=== PATIENT | female | born 1960 | race Hispanic/Latino ===

== ENCOUNTER 2016-11-20 13:43 | Emergency (ER) | payer OTHER ==
[2016-11-20 13:43] VITALS: BMI 19.5
[2016-11-20 13:54] VITALS: BP 107/70; PULSE 93; RESP 18; TEMP 99.8; O2SAT 95
--- NOTE | 2016-11-20 14:11 | ED PDOC ---
Upper Extremity Pain/Injury Time Seen by Provider: 11/20/16 13:43 Chief Complaint (Nursing): Upper Extremity Problem/Injury Chief Complaint (Provider): Right arm pain History Per: Patient History/Exam Limitations: no limitations Onset/Duration Of Symptoms: Days (x5) Current Symptoms Are (Timing): Still Present Additional Complaint(s): Maria Esther Fuller is a 56 year old female who presents to the emergency department for an evaluation of right arm pain after she fell and hit her right arm on door on 11/16/16. She was initially evaluated at [facility] where she was diagnosed with an arm fracture and placed in a sling. Patient came to [facility] because she could not follow up with orthopedist who would be able to take her insurance. Denies any further medical complaints. PMD: none provided Past Medical History Reviewed: Historical Data, Nursing Documentation, Vital Signs Vital Signs: Last Vital Signs Temp 99.8 F H 11/20/16 13:49 Pulse 93 H 11/20/16 13:49 Resp 18 11/20/16 13:49 BP 107/70 11/20/16 13:49 Pulse Ox 95 11/20/16 13:49 - Medical History PMH: Anxiety, Arthritis, Asthma, COPD Denies: Depression - Family History Family History: States: Unknown Family Hx - Social History Current smoker - smoking cessation education provided: Yes Alcohol: None - Home Medications Home Medications: Ambulatory Orders Medication Instructions Recorded Albuterol HFA [Ventolin HFA 90 0.09 mg IH DAILY 08/17/12 mcg/actuation (8 g)] Vitamin B Complex & Vitamin C 1 tab PO DAILY 08/17/12 [Strovite] Mometasone/Formoterol [Dulera 100 2 puff INH DAILY 07/18/15 Mcg/5 Mcg Inhaler] Montelukast [Singulair] 5 mg PO DAILY 07/18/15 Clonazepam 2 mg PO TID PRN 11/17/16 Methadone HCl [Methadone HCl] 180 mg PO DAILY 11/17/16 Acetaminophen [Tylenol 325mg tab] 650 mg PO BID #30 tab 11/20/16 - Allergies Allergies/Adverse Reactions: Allergies Allergy/AdvReac Type Severity Reaction Status Date / Time aspirin Allergy WHEEZING Verified 11/17/16 10:22 Penicillins Allergy WHEEZING Verified 11/17/16 10:22 Sulfa (Sulfonamide Allergy WHEEZING Verified 11/17/16 10:22 Antibiotics) Review of Systems ROS Statement: Except As Marked, All Systems Reviewed And Found Negative Constitutional: Negative for: Other (further medical complaints) Musculoskeletal: Positive for: Arm Pain (right) Physical Exam - Reviewed Nursing Documentation Reviewed: Yes Vital Signs Reviewed: Yes - Physical Exam Appears: Positive for: Well, Non-toxic, Uncomfortable Head Exam: Positive for: ATRAUMATIC, NORMAL INSPECTION, NORMOCEPHALIC Extremity: Positive for: Swelling (right hand), Other (significant ecchymosis with paniful ROM). Negative for: Normal ROM Neurologic/Psych: Positive for: Alert, lawyer criminal II-XII, Oriented - ECG O2 Sat by Pulse Oximetry: 95 (RA) Pulse Ox Interpretation: Normal Medical Decision Making Medical Decision Making: Initial Impression: Right arm fracture Initial Plan: * Sling replacement Time: 14:25 --Spoke with Dr. Haq, stated that patient can follow up with orthopedic office but there would be an [id number] fee. Recommended option of calling her insurance company to see if other providers participate with her insurance instead. --Sling was replaced with a more comfortable fit. --Currently on Methadone so patient was unable to receive narcotic medication for pain. Given Rx for Tylenol 650mg. Upon provider evaluation patient is medically stable and requires no further treatment in the ED at this time. Counseling was provided and all questions were answered regarding diagnosis and need for follow up with orthopedist. There is agreement to discharge plan. Return if symptoms persist or worsen. Clinical Impression: Right arm fracture Scribe Attestation: Documented by Freida aCstle, acting as a scribe for Melanie Tidwell PA-C. Provider Scribe Attestation: All medical record entries made by the Scribe were at my direction and personally dictated by me. I have reviewed the chart and agree that the record accurately reflects my personal performance of the history, physical exam, medical decision making, and the department course for this patient. I have also personally directed, reviewed, and agree with the discharge instructions and disposition. Disposition - Clinical Impression Clinical Impression: Fracture of humerus, proximal, left, closed - Patient ED Disposition Is Patient to be Admitted: No Doctor Will See Patient In The: Office Counseled Patient/Family Regarding: Diagnosis, Need For Followup - Disposition Referrals: [facility] [Outside] [facility] [place] [Outside] Mis Collazo MD [Staff Provider] - Disposition: Routine/Home Disposition Time: 14:30 Condition: STABLE Prescriptions: Acetaminophen [Tylenol 325mg tab] 650 mg PO BID #30 tab Instructions: Arm Fracture in Adults (ED)
== END 2016-11-20 14:47 | disposition home or self-care (01) ==
LOC: H.ER 13:43
DX: Z47.89 Encounter for other orthopedic aftercare (principal); F41.9 Anxiety disorder, unspecified; Z88.0 Allergy status to penicillin